=== PATIENT | male | born 1940 | race Caucasian/White ===

== ENCOUNTER 2017-07-13 09:32 | Inpatient (IN) | payer MEDICARE, BC ==
[~2017-07-13] VITALS: Ht 167.6 cm; Wt 87.6 kg
[2017-07-13] MEDS ORDERED: SOD CHLORIDE 0.9% 1,000 ML IV STA (09:39)
[2017-07-13] MEDS ORDERED: ACETAMINOPHEN 325 MG TAB PO ONE (10:00)
[2017-07-13] MEDS ORDERED: CEFTRIAXONE 1 GM/50 ML (PMX) 50 ML IVPB ONE (10:00)
[2017-07-13 11:39] LABS: BASOPHILS % 0.3 % (0.0-2.0); EOSINOPHILS % 0.1 % (0.0-7.0); HEMATOCRIT 33.7 % (42.0-52.0); HEMOGLOBIN 10.6 g/dl (14.0-18.0); LYMPHOCYTES # 0.9 10^3/ul (0.8-2.9); LYMPHOCYTES % 5.7 % (15.0-51.0); MEAN CORPUSCULAR HEMOGLOBIN 26.6 pg (29.0-33.0); MEAN CORPUSCULAR HGB CONC 31.5 g/dl (32.0-37.0); MEAN CORPUSCULAR VOLUME 84.5 fl (82.0-101.0); MEAN PLATELET VOLUME 11.1 fl (7.4-10.4); MONOCYTE # 1.5 10^3/ul (0.3-0.9); MONOCYTES % 9.4 % (0.0-11.0); NEUTROPHIL # 13.3 10^3/ul (1.6-7.5); NEUTROPHILS % 83.9 % (39.0-77.0); PLATELET COUNT 214 10^3/UL (140-415); RED BLOOD COUNT 3.99 10^6/ul (4.70-6.10); RED CELL DISTRIBUTION WIDTH 15.4 % (11.5-14.5); WHITE BLOOD COUNT 15.8 10^3/ul (4.8-10.8)
[2017-07-13 11:42] LABS: ADD UMIC NO; UR ASCORBIC ACID NEGATIVE (NEGATIVE); UR BILIRUBIN (Dip) NEGATIVE (NEGATIVE); UR BLOOD (Dip) NEGATIVE (NEGATIVE); UR CLARITY CLEAR (CLEAR); UR COLOR YELLOW (YELLOW); UR GLUCOSE (Dip) 1+ mg/dL (NEGATIVE); UR KETONES (Dip) NEGATIVE (NEGATIVE); UR LEUKOCYTE ESTERASE (Dip) NEGATIVE Leu/ul (NEGATIVE); UR NITRITE (Dip) NEGATIVE (NEGATIVE); UR TOTAL PROTEIN (Dip) NEGATIVE (NEGATIVE); UR UROBILINOGEN (Dip) NEGATIVE (NEGATIVE)
--- NOTE | 2017-07-13 11:44 | ERA ---
ER Documentation Chief Complaint Date/Time DATE: 07/13/17 TIME: 11:42 Chief Complaint GEN WEAKNESS NO TRAUMA. NO HEADACHE. SEEN YESTERDAY IN ER FOR SAME HPI This is a 76-year-old male who presents to the emergency room with generalized weakness. The patient was seen in emergency room yesterday for similar symptoms. He states that he was diagnosed with UTI and discharged. He is not sure what medications were given to him. He states that he is feeling generalized fatigue and generalized weakness. He denies any headache chest pain or shortness of breath, no abdominal pain. He denies any falls or trauma to his head. ROS All systems reviewed and are negative except as per history of present illness. Medications Home Meds Reported Medications Acetaminophen with Codeine (Acetaminophen-Cod #4 Tablet) 1 Each Tablet, 1 EACH PO Q12 Y for PAIN, TAB 07/13/17 Aspirin* (Ecotrin*) 325 Mg Tablet.dr, 325 MG PO DAILY, TAB 07/13/17 Lansoprazole* (Prevacid*) 30 Mg Capsule.dr, 30 MG PO DAILY, CAP 07/13/17 Insulin Glargine* (Lantus*) 100 Unit/Ml Soln, 27 UNIT SC QHS, #1 VIAL 07/13/17 Insulin Lispro (Humalog Kwikpen) 200 Unit/1 Ml Insuln.pen, 0 SQ AC MEALS, EA SLIDING SCALE NO SCALE GIVEN 07/13/17 Furosemide* (Furosemide*) 80 Mg Tablet, 80 MG PO DAILY, #30 TAB 07/13/17 Tamsulosin Hcl* (Tamsulosin Hcl*) 0.4 Mg Cap.er.24h, 0.4 MG PO HS, CAP 07/13/17 Rivaroxaban* (Xarelto*) 20 Mg Tablet, 20 MG PO WITH DINNER, TAB 07/13/17 Ramipril (Ramipril) 10 Mg Capsule, 10 MG PO DAILY, CAP 07/13/17 Potassium Chloride* (K-Dur*) 10 Meq Tab.prt.sr, 10 MEQ PO BID, TAB 07/13/17 Amlodipine Besylate* (Amlodipine Besylate*) 10 Mg Tablet, 10 MG PO DAILY, #30 TAB 07/13/17 Atorvastatin Calcium (Atorvastatin Calcium) 10 Mg Tablet, 10 MG PO QHS, #30 TAB 07/13/17 Mirtazapine* (Mirtazapine*) 30 Mg Tablet, 60 MG PO HS, TAB 07/13/17 Cefpodoxime Proxetil* (Cefpodoxime Proxetil*) 100 Mg Tablet, 100 MG PO Q12, #20 TAB 07/13/17 Gabapentin* (Gabapentin*) 300 Mg Capsule, 300 MG PO TID, #90 CAP 07/13/17 Allergies Allergies: Coded Allergies: No Known Allergy (Unverified , 07/13/17) FmHx Family History: No diabetes Physical Exam Vitals Vital Signs Date Time Temp Pulse Resp B/P Pulse Ox O2 Delivery O2 Flow Rate FiO2 07/13/17 12:00 76 22 151/71 95 Nasal Cannula 3.0 07/13/17 11:40 Nasal Cannula 3 07/13/17 10:00 87 18 145/63 99 Room Air 07/13/17 09:48 100.2 92 20 142/85 95 Physical Exam General: Well developed, well nourished, no acute distress Head: Normocephalic, atraumatic. Eyes: Pupils equally reactive, EOM intact ENT: Moist mucous membranes Neck: Supple, no lymphadenopathy Respiratory: Lungs clear bilaterally, no distress Cardiovascular: RRR, no murmurs, rubs, or gallops Abdominal: Soft, non-tender, non-distended, no peritoneal signs : Deferred MSK: No edema, no unilateral swelling, 5/5 strength Neurologic: Alert and oriented, moving all extremities, normal speech, no focal weakness, no cerebellar signs Skin: A small skin tear is noted to the right arm that is hemostatic and subacute Psych: Normal mood Result Diagram: 07/13/17 1107 07/13/17 1107 Results 24 hrs Laboratory Tests Test 07/13/17 11:07 07/13/17 11:17 White Blood Count 15.810^3/ul Red Blood Count 3.9910^6/ul Hemoglobin 10.6g/dl Hematocrit 33.7% Mean Corpuscular Volume 84.5fl Mean Corpuscular Hemoglobin 26.6pg Mean Corpuscular Hemoglobin Concent 31.5g/dl Red Cell Distribution Width 15.4% Platelet Count 86385^3/UL Mean Platelet Volume 11.1fl Neutrophils % 83.9% Lymphocytes % 5.7% Monocytes % 9.4% Eosinophils % 0.1% Basophils % 0.3% Nucleated Red Blood Cells % 0.0/100WBC Neutrophils # 13.310^3/ul Lymphocytes # 0.910^3/ul Monocytes # 1.510^3/ul Eosinophils # 0.010^3/ul Basophils # 0.010^3/ul Nucleated Red Blood Cells # 0.010^3/ul Prothrombin Time 42.7Sec Prothrombin Time Ratio 3.3 INR International Normalized Ratio 4.39 Activated Partial Thromboplast Time 56.5Sec Sodium Level 131mmol/L Potassium Level 4.9mmol/L Chloride Level 99mmol/L Carbon Dioxide Level 26mmol/L Anion Gap 11 Blood Urea Nitrogen 17mg/dl Creatinine 1.22mg/dl Glucose Level 268mg/dl Lactic Acid Level 1.3mmol/L Calcium Level 8.5mg/dl Total Bilirubin 0.2mg/dl Direct Bilirubin 0.00mg/dl Indirect Bilirubin 0.2mg/dl Aspartate Amino Transf (AST/SGOT) 27IU/L Alanine Aminotransferase (ALT/SGPT) 36IU/L Alkaline Phosphatase 139IU/L Troponin I 0.015ng/ml Total Protein 5.9g/dl Albumin 3.1g/dl Globulin 2.80g/dl Albumin/Globulin Ratio 1.10 Urine Color YELLOW Urine Clarity CLEAR Urine pH 5.0 Urine Specific [place] 1.010 Urine Ketones NEGATIVEmg/dL Urine Nitrite NEGATIVEmg/dL Urine Bilirubin NEGATIVEmg/dL Urine Urobilinogen NEGATIVEmg/dL Urine Leukocyte Esterase NEGATIVELeu/ul Urine Hemoglobin NEGATIVEmg/dL Urine Glucose 1+mg/dL Urine Total Protein NEGATIVEmg/dl Current Medications Medications (Trade) Dose Ordered Sig/Piedad Route PRN Reason Start Time Stop Time Status Last Admin Dose Admin Sodium Chloride (NS) 1,000 ml @ 1,000 mls/hr Q1H STAT IV 07/13/17 09:39 07/13/17 10:38 DC 07/13/17 11:23 Acetaminophen 650 mg 650 mg ONCE ONCE PO 07/13/17 10:00 07/13/17 10:01 DC 07/13/17 11:26 Ceftriaxone Sodium (Rocephin) 50 ml @ 100 mls/hr ONCE ONCE IVPB 07/13/17 10:00 07/13/17 10:29 DC 07/13/17 11:26 Ondansetron HCl (Zofran Inj) 4 mg BRIDGE ORDER PRN IV NAUSEA AND/OR VOMITING 07/13/17 13:30 07/14/17 13:29 Acetaminophen (Tylenol Tab) 650 mg ER BRIDGE PRN PO MILD PAIN/FEVER 07/13/17 13:30 07/14/17 13:29 Procedures/MDM EKG, MONITORS, & DIAGNOSTIC IMAGING: EKG: I reviewed and interpreted a 12-lead EKG. Rhythm: Normal sinus rhythm Ectopy: None Intervals: No abnormalities ST segments: No elevations or depressions T waves: No contiguous inversions Chest x-ray: I reviewed and interpreted a 1 view of the chest Mediastinum: No enlargement Cardiac silhouette: No cardiomegaly Airspace: Clear lung duarte bilaterally without evidence of pneumothorax Bones: No evidence of fracture LAB INTERPRETATION: Slightly supratherapeutic INR, leukocytosis, Hyponatremia MEDICAL DECISION MAKING: The patient is a low-grade fever and recent diagnosis of UTI. He describes generalized weakness. His constellation of symptoms are likely secondary to UTI. The patient will require sepsis screening, antipyretics. The patient is unsure what antibiotics were given. A dose of ceftriaxone will be provided in the emergency department. Hospitalization appropriate given 2 ER visits within 48 hours. ER COURSE: The patient does have a low-grade fever and leukocytosis. This is most likely an infectious process. The patient's urine is unrevealing though the patient did receive antibiotics recently. For this reason the patient will be treated for urinary tract infection was given ceftriaxone. He does not meet sepsis criteria and has no evidence of endorgan dysfunction. Continue to monitor the patient. He is resting comfortably and remains at neurologic baseline. Again, no evidence of head trauma to from CT imaging at this time. The patient will be admitted for further management of generalized weakness per I kept the patient and/or family informed of laboratory and diagnostic imaging results throughout the emergency room course. DISPOSITION PLAN: Medical surgical admission for management of UTI and generalized weakness CONSULTATION: Accepting care team and consultations: I discussed the current laboratory data, diagnostic imaging and emergency care provided. Admitting team: Dr. White Admitting team indication: Insurance directed Departure Diagnosis: Primary Impression: Acute weakness Additional Impressions: Urinary tract infection Qualified Code: N30.00 - Acute cystitis without hematuria Supratherapeutic INR Hyponatremia Condition: Stable MARIANNE XIE MD Jul 13, 2017 11:44
[2017-07-13 11:53] LABS: ALBUMIN 3.1 g/dl (3.3-4.9); ALBUMIN/GLOBULIN RATIO 1.1; BILIRUBIN,INDIRECT 0.2 mg/dl (0-1.1); BILIRUBIN,TOTAL 0.2 mg/dl (0.2-1.3); CALCIUM 8.5 mg/dl (8.4-10.2); CREATININE 1.22 mg/dl (0.61-1.24); POTASSIUM 4.9 mmol/L (3.5-5.1); TOTAL PROTEIN 5.9 g/dl (6.1-8.1)
[2017-07-13 12:04] LABS: TROPONIN-I 0.015 ng/ml (0.00-0.12)
--- NOTE | 2017-07-13 12:11 | RADRPT ---
PROCEDURE: XR Chest. CLINICAL INDICATION: Shortness of breath. TECHNIQUE: Single frontal view. COMPARISON: None. FINDINGS: There is mild linear atelectasis at the lung bases. The lungs are otherwise clear. The heart size is normal. There is calcification in the aorta consistent with atherosclerosis. There are sternal wires and mediastinal clips. There is a left-sided permanent pacemaker. There is no pleural effusion. There is no pneumothorax. IMPRESSION: 1. Mild atelectasis at the lung bases. 2. Atherosclerosis. 3. Previous median sternotomy. 4. Permanent pacemaker. RPTAT: QQ .Bakari Wagner MD, MD Date Time Electronically viewed and signed by .Bakari Wagner MD, on 07/13/2017 12:11 .R/
[2017-07-13 12:14] LABS: INR 4.39; PROTIME 42.7 Sec (12.2-14.2); PT RATIO 3.3
[2017-07-13 12:15] LABS: PARTIAL THROMBOPLASTIN TIME 56.5 Sec (25.0-35.0)
[2017-07-13] MEDS ORDERED: GABA300C16 PO (12:24)
[2017-07-13] MEDS ORDERED: MIRT30TA5 PO (12:25)
[2017-07-13] MEDS ORDERED: ATOR10TA65 PO (12:25)
[2017-07-13] MEDS ORDERED: CEFP100T7 PO (12:25)
[2017-07-13] MEDS ORDERED: AMLO-147 PO (12:29)
[2017-07-13] MEDS ORDERED: POTA10TA37 PO (12:31)
[2017-07-13] MEDS ORDERED: TAMS0.4C2 PO (12:34)
[2017-07-13] MEDS ORDERED: RIVA20TA PO (12:34)
[2017-07-13] MEDS ORDERED: RAMI10CA48 PO (12:34)
[2017-07-13] MEDS ORDERED: FURO80TA3 PO (12:35)
[2017-07-13] MEDS ORDERED: LANS30CA47 PO (12:36)
[2017-07-13] MEDS ORDERED: LANT3I SC (12:36)
[2017-07-13] MEDS ORDERED: INSU200I SQ (12:36)
[2017-07-13] MEDS ORDERED: ASPI-781 PO (12:37)
[2017-07-13] MEDS ORDERED: ACET1TAB44 PO (12:43)
[2017-07-13] MEDS ORDERED: ONDANSETRON 4 MG INJ IV PRN ×2 (13:30→14:30)
[2017-07-13] MEDS ORDERED: ACETAMINOPHEN 325 MG TAB PO PRN ×2 (13:30→14:30)
[2017-07-13] MEDS ORDERED: SOD CHLORIDE 0.45% 1,000 ML IV SCH (14:18)
[2017-07-13] MEDS ORDERED: DEXTROSE 50% 50 ML SYRINGE IV PRN ×2 (14:30)
[2017-07-13] MEDS ORDERED: GLUCOSE GEL 15 GRAM TUBE BUCCAL PRN (14:30)
[2017-07-13] MEDS ORDERED: DOCUSATE SODIUM 100 MG CAP PO PRN (14:30)
[2017-07-13] MEDS ORDERED: ALBUTEROL/IPRATROPIUM (NEB) 3 ML AMP HHN PRN (14:30)
[2017-07-13] MEDS ORDERED: NA PHOSPHATE/BIPHOS 133 ML ENEMA PR PRN (14:30)
[2017-07-13] MEDS ORDERED: LORAZEPAM 2 MG INJ IV PRN (14:30)
[2017-07-13] MEDS ORDERED: GLUCAGON 1 MG INJ IM PRN (14:30)
[2017-07-13] MEDS ORDERED: GLUCOSE GEL 15 GRAM TUBE PO PRN ×2 (14:30)
[2017-07-13] MEDS ORDERED: NACL 0.9% 3 ML SYG IV SCH (14:30)
[2017-07-13] MEDS ORDERED: NITROGLYCERIN (SL) 0.4 MG TAB SL PRN (14:30)
[2017-07-13 15:30] VITALS: Ht 167.6 cm; Wt 87.6 kg
[2017-07-13 15:33] VITALS: BP 162/72; RESP 18
--- NOTE | 2017-07-13 16:53 | HP ---
DATE OF ADMISSION: 07/13/2017 CHIEF COMPLAINT: Generalized weakness. HISTORY OF PRESENT ILLNESS: This is 76-year-old male with a past medical history of type 2 diabetes, essential hypertension, recent urinary tract infection, heart arrhythmia, who presents with weakness he says has been going on for the last 2 days. Patient was recently treated for a UTI a little over a week ago and took some antibiotics at home, but denies any dysuria. No fevers or chills. No nausea or vomiting. No upper or lower GI bleeding. No chest pain. No shortness of breath. No headaches or dizziness. But he is having complaints of generalized weakness. He does not remember which antibiotic he was taking for his urinary tract infection. He says his primary care doctors are Dr. Bean at [facility], and also he sees a Dr. Serrano, a sales office assistant at [facility]. He has been on Xarelto for about the last year for a heart arrhythmia, but he does not remember what kind of heart arrhythmia he has. When he came into the ER today, he had a fever, temperature of 100.2, and his white blood cell count was elevated at 15.8. His UA was actually without signs of possible UTI, inconclusive. PAST MEDICAL HISTORY: As above. ALLERGIES: NO KNOWN DRUG ALLERGIES. MEDICATIONS: Home medications include: 1. Cefpodoxime 100 mg p.o. q.12 hours. 2. Flomax 0.4 mg q.h.s.. 3. Xarelto 20 mg q.h.s. 4. Amlodipine 10 mg daily. 5. Atorvastatin 10 mg q.h.s. 6. Ramipril 10 mg daily. 7. [place] q.12 hours p.r.n 8. Aspirin 325 mg daily. 9. Gabapentin 300 mg t.i.d. 10. Mirtazapine 60 mg q.h.s. 11. Lasix 80 mg daily. 12. K-Dur 10 mEq b.i.d. 13. Prevacid 30 mg daily. 14. Lantus 27 units q.h.s. 15. Humalog with meals. PAST SURGICAL HISTORY: He has had tonsil surgery in the past. SOCIAL HISTORY: Former smoker. Quit many years ago and denies any IV drug abuse. Denies any alcohol abuse. FAMILY HISTORY: Noncontributory. PHYSICAL EXAMINATION: VITAL SIGNS: T-max 100.2, pulse 76 and 92, respirations 18 and 22, blood pressure is 151/71, satting at 95 percent 3 L nasal cannula. GENERAL: Patient is sitting in bed, answers question appropriately. In mild distress. HEENT: Pupils equal, round, reactive to light. Extraocular muscles intact. NECK: Supple. No thyromegaly. LUNGS: Clear to auscultation bilaterally. CARDIOVASCULAR: S1, S2 heard. No rubs, gallops. ABDOMEN: Soft, nontender, nondistended. Normal bowel sounds. No rebound or guarding. MUSCULOSKELETAL: No lower extremity edema bilaterally. NEUROLOGIC: No focal deficits. SKIN: Small tear noted in the right arm that is hemostatic, subacute. LABORATORY AND IMAGING STUDIES: WBC 15.8, hemoglobin 10.6, hematocrit 33.7, platelets 214. Sodium 131, potassium 4.9, chloride 99, CO2 of 26, BUN 17, creatinine 1.22, glucose 268. He had a chest x-ray performed that shows mild atelectasis at the lung bases, atherosclerosis, previous median sternotomy, permanent pacemaker. ASSESSMENT AND PLAN: A 76-year-old male, presents with generalized weakness, with signs of fever and leukocytosis, likely secondary to urinary tract infection. 1. Sepsis. He has fever and elevated white blood cell count. Vital signs are relatively stable. Will admit the patient. Again, likely secondary to urinary tract infection, although urinalysis did not show overt signs of a urinary tract infection, but he was recently treated for a urinary tract infection as an outpatient. So admit the patient to telemetry floor. Put him on Rocephin antibiotics. Tylenol p.r.n. pain and fevers. Follow up final culture results. Put him on broad-spectrum antibiotics, as mentioned. Check TSH, A1c and lipid panel as well. Get PT and OT consults as well. 2. History of type 2 diabetes. Put him back on his Lantus insulin, put him on sliding scale insulin as well. Will check an A1c. 3. Essential hypertension. Blood pressure is actually stable. Continue home blood pressure medicines for now. 4. Elevated INR. INR today was found to be 4.39. He does take Xarelto at home. We will hold obviously the Xarelto and trend his INR for now. Since he is not having any overt bleeding signs, we are not going to give him any vitamin K at this time. Coronary artery disease. Chest x-ray did show signs of a median sternotomy. Patient does not remember his cardiac issues. Presumably, he had a bypass surgery with a pacemaker placement in the past, and he has had some kind of arrhythmia in the past. He sees a sales office assistant at [facility], 5. Dr. Serrano. So, for now, continue him on telemetry monitoring. Get a 2D echocardiogram as well. Consider holding his Lasix medication, since he is having signs of sepsis and would benefit more from IV fluids at this point. Dictated By: Cullen Hernandez MD /[email or web address]/fozia /Document#: [id number]
[2017-07-13] MEDS: PIPER-TAZO 3.375 GM IV (PMX) 100 ML IVPB SCH (17:37)
[2017-07-13] MEDS: INSULIN ASPART [NOVOLOG] 3 ML PEN SC SCH ×2 (18:26→21:00)
[2017-07-13 19:37] VITALS: BP 153/72; RESP 20
[2017-07-13] MEDS: POTASSIUM CHLORIDE (SR) 10 MEQ TAB PO SCH (21:00)
[2017-07-13] MEDS: GABAPENTIN 300 MG CAP PO SCH (21:00)
[2017-07-13] MEDS: ATORVASTATIN 10 MG TAB PO SCH (21:00)
[2017-07-13] MEDS: TAMSULOSIN (SR) 0.4 MG CAP PO SCH (21:00)
[2017-07-13] MEDS: CEFPODOXIME 200 MG TAB PO SCH (21:00)
[2017-07-13] MEDS: MIRTAZAPINE 15 MG TAB PO SCH (21:01)
[2017-07-13] MEDS: INSULIN GLARGINE [LANtus] 3 ML PEN SC SCH (21:13)
[2017-07-13] MEDS: ACCU-CHEK XX SCH (21:15)
[2017-07-13] MEDS: SOD CHLORIDE 0.9% 1,000 ML IV SCH (22:46)
[2017-07-14] MEDS: PIPER-TAZO 3.375 GM IV (PMX) 100 ML IVPB SCH ×3 (01:15→12:04)
[2017-07-14] MEDS: ACCU-CHEK XX SCH (01:15)
[2017-07-14 01:44] VITALS: BP 144/65; RESP 20
[2017-07-14] MEDS: MAGNESIUM HYDROXIDE 30ML CUP PO PRN (04:48)
[2017-07-14] MEDS: HYDROCODONE/APAP (5/325) TAB PO PRN (04:48)
[2017-07-14] MEDS: PANTOPRAZOLE (EC) 40 MG TAB PO SCH (05:32)
[2017-07-14 06:20] LABS: BASOPHILS % 0.2 % (0.0-2.0); EOSINOPHILS # 0.2 10^3/ul (0.0-0.5); EOSINOPHILS % 1.8 % (0.0-7.0); HEMATOCRIT 33.5 % (42.0-52.0); HEMOGLOBIN 10.9 g/dl (14.0-18.0); LYMPHOCYTES # 0.6 10^3/ul (0.8-2.9); LYMPHOCYTES % 6.5 % (15.0-51.0); MEAN CORPUSCULAR HGB CONC 32.5 g/dl (32.0-37.0); MEAN CORPUSCULAR VOLUME 83.1 fl (82.0-101.0); MEAN PLATELET VOLUME 10.2 fl (7.4-10.4); MONOCYTE # 0.8 10^3/ul (0.3-0.9); MONOCYTES % 7.9 % (0.0-11.0); NEUTROPHIL # 7.9 10^3/ul (1.6-7.5); NEUTROPHILS % 83.1 % (39.0-77.0); PLATELET COUNT 211 10^3/UL (140-415); RED BLOOD COUNT 4.03 10^6/ul (4.70-6.10); RED CELL DISTRIBUTION WIDTH 14.8 % (11.5-14.5); WHITE BLOOD COUNT 9.5 10^3/ul (4.8-10.8)
[2017-07-14 06:28] LABS: INR 1.72; PROTIME 20.3 Sec (12.2-14.2); PT RATIO 1.6
[2017-07-14 06:48] LABS: CALCIUM 8.4 mg/dl (8.4-10.2); CREATININE 1.05 mg/dl (0.61-1.24); MAGNESIUM 2.1 mg/dl (1.7-2.5); PHOSPHORUS 3.6 mg/dl (2.5-4.9)
[2017-07-14 07:02] LABS: THYROID STIMULATING HORMONE 1.85 MIU/L (0.465-4.680)
[2017-07-14 07:25] VITALS: BP 154/71; RESP 20
[2017-07-14] MEDS: AMLODIPINE 10 MG TAB PO SCH (08:05)
[2017-07-14] MEDS: CEFPODOXIME 200 MG TAB PO SCH (08:05)
[2017-07-14] MEDS: GABAPENTIN 300 MG CAP PO SCH ×3 (08:06→21:24)
[2017-07-14] MEDS: POTASSIUM CHLORIDE (SR) 10 MEQ TAB PO SCH ×2 (08:06→21:24)
[2017-07-14] MEDS: INSULIN ASPART [NOVOLOG] 3 ML PEN SC SCH ×4 (08:09→21:28)
[2017-07-14] MEDS ORDERED: FUROSEMIDE 40 MG TAB PO SCH (09:00)
[2017-07-14] MEDS: morphine 2 MG INJ IV PRN (09:35)
--- NOTE | 2017-07-14 10:17 | PN ---
Date/Time of Note Date/Time of Note DATE: 07/14/17 TIME: 10:08 Assessment/Plan VTE Prophylaxis VTE Prophylaxis Intervention: other Lines/Catheters IV Catheter Type (from Nrs): Peripheral IV Urinary Cath still in place: No (condom cath applied) Assessment/Plan Chief Complaint/Hosp Course ASSESSMENT AND PLAN: A 76-year-old male, presents with generalized weakness, with signs of fever and leukocytosis, likely secondary to urinary tract infection. 1. Sepsis. Likely secondary to urinary tract infection, continue Rocephin, Follow-up urine culture and sensitivity Leukocytosis has resolved, continue Tylenol as needed 2. History of type 2 diabetes. Continue Lantus and sliding scale insulin Placed the patient on low-carb diet 3. Essential hypertension. Controlled on medical management, continue home meds 4. Supra therapeutic INR. INR 4.39 at time of admission. Indication for vitamin K at this time there is no active bleeding. Continue to monitor INR 5. Coronary artery disease. With history of bypass surgery with a pacemaker placement Patient is asymptomatic without any chest pain Continue Xarelto, statin, and monitor blood pressure 6. Dyslipidemia. Continue statin 7. BPH. Continue home meds 8. Diabetic neuropathy. Continue gabapentin and close monitoring of diabetic mellitus treatment Plan: Follow urine culture and sensitivity Follow up physical therapy recommendations Disposition: Discharged home versus residential facility for physical therapy tomorrow Problems: Subjective 24 Hr Interval Summary Free Text/Dictation Patient states that he is feeling better Denies of any chest pain or shortness of breath Afebrile this morning Waiting for PT OT eval Exam/Review of Systems Vital Signs Vitals Vital Signs Date Time Temp Pulse Resp B/P Pulse Ox O2 Delivery O2 Flow Rate FiO2 07/14/17 07:25 99.0 66 20 154/71 96 07/13/17 15:38 Nasal Cannula 2.0 Intake and Output 07/13/17 07/13/17 07/14/17 15:00 23:00 07:00 Intake Total 450 ml 1450 ml Output Total 0 ml 1000 ml Balance 450 ml 450 ml Exam General: The patient is well-developed, Not in acute distress. HEENT: Atraumatic, normocephalic. The pupils are equal and round . Neck: Supple with full range of motion. Chest: Normal expansion of the thorax during inspiration Lungs: Clear to auscultation bilaterally Heart: Normal S1-S2, Regular rhythm and rate. Abdomen: Soft , nontender, nondistended , bowel sounds are present. Extremities: Normal to inspection, no edema no cyanosis Neurologic: Normal mental status,The patient is awake, alert and oriented . Results Result Diagram: 07/14/17 0550 07/14/17 0549 Results 24 hrs Laboratory Tests Test 07/13/17 11:07 07/13/17 11:17 07/13/17 13:40 07/13/17 16:02 White Blood Count 15.8 H Red Blood Count 3.99 L Hemoglobin 10.6 L Hematocrit 33.7 L Mean Corpuscular Volume 84.5 Mean Corpuscular Hemoglobin 26.6 L Mean Corpuscular Hemoglobin Concent 31.5 L Red Cell Distribution Width 15.4 H Platelet Count 214 Mean Platelet Volume 11.1 H Neutrophils % 83.9 H Lymphocytes % 5.7 L Monocytes % 9.4 Eosinophils % 0.1 Basophils % 0.3 Nucleated Red Blood Cells % 0.0 Neutrophils # 13.3 H Lymphocytes # 0.9 Monocytes # 1.5 H Eosinophils # 0.0 Basophils # 0.0 Nucleated Red Blood Cells # 0.0 Prothrombin Time 42.7 H Prothrombin Time Ratio 3.3 INR International Normalized Ratio 4.39 Activated Partial Thromboplast Time 56.5 H Sodium Level 131 L Potassium Level 4.9 Chloride Level 99 Carbon Dioxide Level 26 Anion Gap 11 Blood Urea Nitrogen 17 Creatinine 1.22 Glucose Level 268 H Lactic Acid Level 1.3 0.9 0.7 Calcium Level 8.5 Total Bilirubin 0.2 Direct Bilirubin 0.00 Indirect Bilirubin 0.2 Aspartate Amino Transf (AST/SGOT) 27 Alanine Aminotransferase (ALT/SGPT) 36 Alkaline Phosphatase 139 H Troponin I 0.015 Total Protein 5.9 L Albumin 3.1 L Globulin 2.80 Albumin/Globulin Ratio 1.10 Free Thyroxine 1.17 Urine Color YELLOW Urine Clarity CLEAR Urine pH 5.0 Urine Specific [place] 1.010 Urine Ketones NEGATIVE Urine Nitrite NEGATIVE Urine Bilirubin NEGATIVE Urine Urobilinogen NEGATIVE Urine Leukocyte Esterase NEGATIVE Urine Hemoglobin NEGATIVE Urine Glucose 1+ H Urine Total Protein NEGATIVE Test 07/13/17 17:36 07/13/17 18:20 07/13/17 21:03 07/14/17 05:48 Bedside Glucose 153 148 147 Prothrombin Time 20.3 #H Prothrombin Time Ratio 1.6 INR International Normalized Ratio 1.72 Test 07/14/17 05:49 07/14/17 05:50 07/14/17 08:03 Sodium Level 136 Potassium Level 4.0 Chloride Level 104 Carbon Dioxide Level 29 Anion Gap 7 L Blood Urea Nitrogen 16 Creatinine 1.05 Glucose Level 186 Hemoglobin A1c 7.4 H Calcium Level 8.4 Phosphorus Level 3.6 Magnesium Level 2.1 Triglycerides Level 46 Cholesterol Level 62 L LDL Cholesterol, Calculated 22 HDL Cholesterol 31 Cholesterol/HDL Ratio 2.0 Thyroid Stimulating Hormone (TSH) 1.850 White Blood Count 9.5 # Red Blood Count 4.03 L Hemoglobin 10.9 L Hematocrit 33.5 L Mean Corpuscular Volume 83.1 Mean Corpuscular Hemoglobin 27.0 L Mean Corpuscular Hemoglobin Concent 32.5 Red Cell Distribution Width 14.8 H Platelet Count 211 Mean Platelet Volume 10.2 Neutrophils % 83.1 H Lymphocytes % 6.5 L Monocytes % 7.9 Eosinophils % 1.8 Basophils % 0.2 Nucleated Red Blood Cells % 0.0 Neutrophils # 7.9 H Lymphocytes # 0.6 L Monocytes # 0.8 Eosinophils # 0.2 Basophils # 0.0 Nucleated Red Blood Cells # 0.0 Bedside Glucose 168 Medications Medications Current Medications Ondansetron HCl (Zofran Inj) 4 mg Q6H PRN IV NAUSEA AND/OR VOMITING; Start at 14:30 Acetaminophen (Tylenol Tab) 650 mg Q6H PRN PO PAIN LEVEL 1-3 OR FEVER; Start at 14:30 Acetaminophen/ Hydrocodone Bitart ([place] (5/325)) 1 tab Q6H PRN PO MODERATE PAIN LEVEL 4-6 Last administered on 07/14/17 04:48; Admin Dose 1 TAB; Start at 14:30 Morphine Sulfate (morphine) 2 mg Q4H PRN IV SEVERE PAIN LEVEL 7-10 Last administered on 07/14/17 09:35; Admin Dose 2 MG; Start 07/13/17 at 14:30 Docusate Sodium (Colace) 100 mg Q12H PRN PO CONSTIPATION; Start 07/13/17 at 14: 30 Magnesium Hydroxide (Milk Of Mag) 30 ml DAILY PRN PO CONSTIPATION Last administered on 07/14/17 04:48; Admin Dose 30 ML; Start 07/13/17 at 14:30 Sodium Biphosphate/ Sodium Phosphate (Fleet Enema) 133 ml DAILY PRN MD CONSTIPATION; Start 07/13/17 at 14:30 Lorazepam 0.5 mg 0.5 mg Q6H PRN IV ANXIETY; Start 07/13/17 at 14:30 Piperacillin Sod/ Tazobactam Sod (Zosyn 3.375gm/ 100 ml (Pmx)) 100 ml @ 200 mls /hr Q6 IVPB Last administered on 07/14/17 05:31; Admin Dose 200 MLS/HR; Start 07/13/17 at 18:00 Hydralazine HCl (Apresoline) 10 mg Q6H PRN IV ELEVATED BLOOD PRESSURE; Start at 14:30 Nitroglycerin (Nitroglycerin (Sl Tab) 0.4 Mg) 1 tab Q5M PRN SL ANGINA; Start at 14:30 Diagnostic Test (Pha) (Accu-Chek) 1 ea 02 XX ; Start 07/14/17 at 02:00 Amlodipine Besylate (Norvasc) 10 mg DAILY PO Last administered on 07/14/17 08: 05; Admin Dose 10 MG; Start 07/14/17 at 09:00 Atorvastatin Calcium (Lipitor) 10 mg QHS PO Last administered on 07/13/17 21: 00; Admin Dose 10 MG; Start 07/13/17 at 21:00 Cefpodoxime Proxetil (Vantin) 100 mg Q12 PO Last administered on 07/14/17 08: 05; Admin Dose 100 MG; Start 07/13/17 at 21:00 Furosemide (Lasix) 80 mg DAILY PO Last administered on 07/14/17 08:06; Admin Dose 80 MG; Start 07/14/17 at 09:00; Status Future Hold Gabapentin (Neurontin) 300 mg TID PO Last administered on 07/14/17 08:06; Admin Dose 300 MG; Start 07/13/17 at 21:00 Insulin Glargine (Lantus) 27 unit QHS SC Last administered on 07/13/17 21:13; Admin Dose 27 UNIT; Start 07/13/17 at 21:00 Pantoprazole (Protonix Tab) 40 mg DAILY@06 PO Last administered on 07/14/17 05 :32; Admin Dose 40 MG; Start 07/14/17 at 06:00 Mirtazapine (Remeron) 60 mg HS PO Last administered on 07/13/17 21:01; Admin Dose 60 MG; Start 07/13/17 at 21:00 Potassium Chloride (Klor-Con 10) 10 meq BID PO Last administered on 07/14/17 08:06; Admin Dose 10 MEQ; Start 07/13/17 at 21:00 Tamsulosin HCl (Flomax) 0.4 mg HS PO Last administered on 07/13/17 21:00; Admin Dose 0.4 MG; Start 07/13/17 at 21:00 Miscellaneous Information 1 ea NOTE XX ; Start 07/13/17 at 14:30 Glucose (Glutose) 15 gm Q15M PRN PO DECREASED GLUCOSE; Start 07/13/17 at 14:30 Glucose (Glutose) 22.5 gm Q15M PRN PO DECREASED GLUCOSE; Start 07/13/17 at 14: 30 Dextrose (D50w Syringe) 25 ml Q15M PRN IV DECREASED GLUCOSE; Start 07/13/17 at 14:30 Dextrose (D50w Syringe) 50 ml Q15M PRN IV DECREASED GLUCOSE; Start 07/13/17 at 14:30 Glucagon (Glucagen) 1 mg Q15M PRN IM DECREASED GLUCOSE; Start 07/13/17 at 14:30 Glucose (Glutose) 15 gm Q15M PRN BUCCAL DECREASED GLUCOSE; Start 07/13/17 at 14 :30 Diagnostic Test (Pha) 1 ea 1 ea 02 XX ; Start 07/14/17 at 02:00 Sodium Chloride (NS) 1,000 ml @ 75 mls/hr [id number] IV Last administered on 07/13 22:46; Admin Dose 75 MLS/HR; Start 07/13/17 at 22:30; Stop 07/14/17 at 12: 00 NOEL MELLO MD Jul 14, 2017 10:17
[2017-07-14] MEDS: SOD CHLORIDE 0.9% 1,000 ML IV SCH (11:50)
[2017-07-14 14:00] VITALS: BP 156/70; RESP 18
[2017-07-14] MEDS: CEFTRIAXONE 1 GM/NS 50 ML IVPB SCH (17:06)
[2017-07-14 20:00] VITALS: BP 169/74; PULSE 80; RESP 20
[2017-07-14] MEDS: ATORVASTATIN 10 MG TAB PO SCH (21:23)
[2017-07-14] MEDS: MIRTAZAPINE 15 MG TAB PO SCH (21:24)
[2017-07-14] MEDS: INSULIN GLARGINE [LANtus] 3 ML PEN SC SCH (21:27)
[2017-07-14] MEDS: TAMSULOSIN (SR) 0.4 MG CAP PO SCH (21:36)
[2017-07-15 01:50] VITALS: BP 164/73; RESP 20
[2017-07-15] MEDS: ACCU-CHEK XX SCH ×2 (02:00)
[2017-07-15] MEDS ORDERED: INSULIN ASPART [NOVOLOG] 3 ML PEN SC ONE (02:30)
[2017-07-15] MEDS: PANTOPRAZOLE (EC) 40 MG TAB PO SCH (06:02)
[2017-07-15 07:29] VITALS: BP 189/84; RESP 20
[2017-07-15] MEDS: morphine 2 MG INJ IV PRN (07:35)
[2017-07-15] MEDS: INSULIN ASPART [NOVOLOG] 3 ML PEN SC SCH ×4 (07:53→21:01)
[2017-07-15] MEDS: AMLODIPINE 10 MG TAB PO SCH (07:54)
[2017-07-15] MEDS: GABAPENTIN 300 MG CAP PO SCH ×3 (07:54→20:53)
[2017-07-15] MEDS: POTASSIUM CHLORIDE (SR) 10 MEQ TAB PO SCH ×2 (07:54→20:52)
[2017-07-15 08:24] LABS: BASOPHILS % 0.4 % (0.0-2.0); EOSINOPHILS # 0.3 10^3/ul (0.0-0.5); EOSINOPHILS % 3.5 % (0.0-7.0); HEMOGLOBIN 10.8 g/dl (14.0-18.0); LYMPHOCYTES % 13.2 % (15.0-51.0); MEAN CORPUSCULAR HEMOGLOBIN 27.3 pg (29.0-33.0); MEAN CORPUSCULAR HGB CONC 32.7 g/dl (32.0-37.0); MEAN CORPUSCULAR VOLUME 83.5 fl (82.0-101.0); MEAN PLATELET VOLUME 10.2 fl (7.4-10.4); MONOCYTE # 0.7 10^3/ul (0.3-0.9); MONOCYTES % 9.2 % (0.0-11.0); NEUTROPHIL # 5.3 10^3/ul (1.6-7.5); NEUTROPHILS % 73.1 % (39.0-77.0); PLATELET COUNT 232 10^3/UL (140-415); RED BLOOD COUNT 3.95 10^6/ul (4.70-6.10); RED CELL DISTRIBUTION WIDTH 14.6 % (11.5-14.5); WHITE BLOOD COUNT 7.2 10^3/ul (4.8-10.8)
[2017-07-15 09:00] LABS: CALCIUM 8.4 mg/dl (8.4-10.2); CREATININE 1.04 mg/dl (0.61-1.24)
--- NOTE | 2017-07-15 11:10 | PN ---
Date/Time of Note Date/Time of Note DATE: 07/15/17 TIME: 11:04 Assessment/Plan VTE Prophylaxis VTE Prophylaxis Intervention: SCD's Lines/Catheters [facility] Saline Lock Assessment/Plan Chief Complaint/Hosp Course ASSESSMENT AND PLAN: A 76-year-old male, presents with generalized weakness, with signs of fever and leukocytosis, likely secondary to urinary tract infection. 1. Sepsis. Likely secondary to urinary tract infection, continue Rocephin, urine culture and sensitivity negative Leukocytosis has resolved, continue Tylenol as needed 2. History of type 2 diabetes. Continue Lantus and sliding scale insulin Placed the patient on low-carb diet 3. Essential hypertension. Controlled on medical management, continue home meds 4. Supra therapeutic INR. INR 4.39 at time of admission. no Indication for vitamin K at this time there is no active bleeding. Continue to monitor INR 5. Coronary artery disease. With history of bypass surgery with a pacemaker placement Patient is asymptomatic without any chest pain Continue Xarelto, statin, and monitor blood pressure 6. Dyslipidemia. Continue statin 7. BPH. Continue home meds 8. Diabetic neuropathy. 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 He was found to have SIRS upon admission which is likely secondary to urinary tract infection which was treated at the [facility] several days ago and he was discharged from the emergency room. Although his urine culture is found to be negative I strongly believe that this is false negative secondary to the treatment admission community emergency room. Patient admission status has been changed from observation to inpatient secondary to his diagnosis of SIRS/UTI and his debility and weakness Patient will require to be transferred to shelter facility for continuation of IV antibiotics and physical therapy Plan: Follow urine culture and sensitivity Follow up physical therapy recommendations Disposition: Discharged home versus shelter facility for physical therapy tomorrow Problems: Subjective 24 Hr Interval Summary Free Text/Dictation Patient continues to complain of having generalized weakness He was seen and evaluated by the physical therapist and they have recommended the patient should be transferred to shelter facility secondary to his weakness and need of assistance. Patient does live at home with his spouse and at this time his is not able to attend to his needs secondary to his risk of fall This morning patient denies of having any chest pain or shortness of breath Denies of any dysuria Tolerating oral intake Exam/Review of Systems Vital Signs Vitals Vital Signs Date Time Temp Pulse Resp B/P Pulse Ox O2 Delivery O2 Flow Rate FiO2 07/15/17 07:29 98.4 72 20 189/84 95 07/14/17 20:00 Room Air 07/13/17 15:38 2.0 Intake and Output 07/14/17 07/14/17 07/15/17 15:00 23:00 07:00 Intake Total 450 ml 1990 ml 800 ml Output Total 1000 ml 1800 ml Balance 450 ml 990 ml -1000 ml Exam General: The patient is well-developed, Not in acute distress. HEENT: Atraumatic, normocephalic. The pupils are equal and round . Neck: Supple with full range of motion. Chest: Normal expansion of the thorax during inspiration Lungs: Clear to auscultation bilaterally Heart: Normal S1-S2, Regular rhythm and rate. Abdomen: Soft , nontender, nondistended , bowel sounds are present. Genitourinary: Normal external genitalia, Condom cath in place Extremities: Normal to inspection, no edema no cyanosis Neurologic: Normal mental status,The patient is awake, alert and oriented . Results Result Diagram: 07/15/17 0755 07/15/17 0755 Results 24 hrs Laboratory Tests Test 07/14/17 12:04 07/14/17 17:09 07/14/17 18:44 07/14/17 21:21 Bedside Glucose 173 246 H 281 H 298 H Test 07/15/17 02:19 07/15/17 07:53 07/15/17 07:55 Bedside Glucose 347 H 138 White Blood Count 7.2 # Red Blood Count 3.95 L Hemoglobin 10.8 L Hematocrit 33.0 L Mean Corpuscular Volume 83.5 Mean Corpuscular Hemoglobin 27.3 L Mean Corpuscular Hemoglobin Concent 32.7 Red Cell Distribution Width 14.6 H Platelet Count 232 Mean Platelet Volume 10.2 Neutrophils % 73.1 Lymphocytes % 13.2 L Monocytes % 9.2 Eosinophils % 3.5 Basophils % 0.4 Nucleated Red Blood Cells % 0.0 Neutrophils # 5.3 Lymphocytes # 1.0 Monocytes # 0.7 Eosinophils # 0.3 Basophils # 0.0 Nucleated Red Blood Cells # 0.0 Sodium Level 136 Potassium Level 4.0 Chloride Level 102 Carbon Dioxide Level 30 Anion Gap 8 Blood Urea Nitrogen 13 Creatinine 1.04 Glucose Level 123 # Calcium Level 8.4 Medications Medications Current Medications Ondansetron HCl (Zofran Inj) 4 mg Q6H PRN IV NAUSEA AND/OR VOMITING; Start at 14:30 Acetaminophen (Tylenol Tab) 650 mg Q6H PRN PO PAIN LEVEL 1-3 OR FEVER; Start at 14:30 Acetaminophen/ Hydrocodone Bitart ([place] (5/325)) 1 tab Q6H PRN PO MODERATE PAIN LEVEL 4-6 Last administered on 07/14/17 04:48; Admin Dose 1 TAB; Start at 14:30 Morphine Sulfate (morphine) 2 mg Q4H PRN IV SEVERE PAIN LEVEL 7-10 Last administered on 07/15/17 07:35; Admin Dose 2 MG; Start 07/13/17 at 14:30 Docusate Sodium (Colace) 100 mg Q12H PRN PO CONSTIPATION; Start 07/13/17 at 14: 30 Magnesium Hydroxide (Milk Of Mag) 30 ml DAILY PRN PO CONSTIPATION Last administered on 07/14/17 04:48; Admin Dose 30 ML; Start 07/13/17 at 14:30 Sodium Biphosphate/ Sodium Phosphate (Fleet Enema) 133 ml DAILY PRN [place] CONSTIPATION; Start 07/13/17 at 14:30 Lorazepam (Ativan) 0.5 mg Q6H PRN IV ANXIETY; Start 07/13/17 at 14:30 Hydralazine HCl (Apresoline) 10 mg Q6H PRN IV ELEVATED BLOOD PRESSURE; Start at 14:30 Nitroglycerin (Nitroglycerin (Sl Tab) 0.4 Mg) 1 tab Q5M PRN SL ANGINA; Start at 14:30 Diagnostic Test (Pha) (Accu-Chek) 1 ea 02 XX ; Start 07/14/17 at 02:00 Amlodipine Besylate (Norvasc) 10 mg DAILY PO Last administered on 07/15/17 07: 54; Admin Dose 10 MG; Start 07/14/17 at 09:00 Atorvastatin Calcium (Lipitor) 10 mg QHS PO Last administered on 07/14/17 21: 23; Admin Dose 10 MG; Start 07/13/17 at 21:00 Furosemide (Lasix) 80 mg DAILY PO Last administered on 07/14/17 08:06; Admin Dose 80 MG; Start 07/14/17 at 09:00; Status Future Hold Gabapentin (Neurontin) 300 mg TID PO Last administered on 07/15/17 07:54; Admin Dose 300 MG; Start 07/13/17 at 21:00 Insulin Glargine (Lantus) 27 unit QHS SC Last administered on 07/14/17 21:27; Admin Dose 27 UNIT; Start 07/13/17 at 21:00 Pantoprazole (Protonix Tab) 40 mg DAILY@06 PO Last administered on 07/15/17 06 :02; Admin Dose 40 MG; Start 07/14/17 at 06:00 Mirtazapine (Remeron) 60 mg HS PO Last administered on 07/14/17 21:24; Admin Dose 60 MG; Start 07/13/17 at 21:00 Potassium Chloride (Klor-Con 10) 10 meq BID PO Last administered on 07/15/17 07:54; Admin Dose 10 MEQ; Start 07/13/17 at 21:00 Tamsulosin HCl (Flomax) 0.4 mg HS PO Last administered on 07/14/17 21:36; Admin Dose 0.4 MG; Start 07/13/17 at 21:00 Miscellaneous Information 1 ea NOTE XX ; Start 07/13/17 at 14:30 Glucose (Glutose) 15 gm Q15M PRN PO DECREASED GLUCOSE; Start 07/13/17 at 14:30 Glucose (Glutose) 22.5 gm Q15M PRN PO DECREASED GLUCOSE; Start 07/13/17 at 14: 30 Dextrose (D50w Syringe) 25 ml Q15M PRN IV DECREASED GLUCOSE; Start 07/13/17 at 14:30 Dextrose (D50w Syringe) 50 ml Q15M PRN IV DECREASED GLUCOSE; Start 07/13/17 at 14:30 Glucagon (Glucagen) 1 mg Q15M PRN IM DECREASED GLUCOSE; Start 07/13/17 at 14:30 Glucose (Glutose) 15 gm Q15M PRN BUCCAL DECREASED GLUCOSE; Start 07/13/17 at 14 :30 Diagnostic Test (Pha) 1 ea 1 ea 02 XX ; Start 07/14/17 at 02:00 Ceftriaxone Sodium (Rocephin) 50 ml @ 100 mls/hr Q24H IVPB Last administered on 07/14/17t 17:06; Admin Dose 100 MLS/HR; Start 07/14/17 at 18:00 Diagnostic Test (Pha) (Accu-Chek) 1 ea 02 XX ; Start 07/16/17 at 02:00 Diagnostic Test (Pha) (Accu-Chek) 1 XX ; Start 07/16/17 at 02:00 NOEL MELLO MD Jul 15, 2017 11:10
--- NOTE | 2017-07-15 12:47 | RADRPT ---
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 Physician: ROOPA WYATT Quality: Good Procedures: Transthoracic echocardiogram with complete 2D, M-Mode, and doppler examination. Indications: Shortness of breath. 2D/M Mode Doppler Measurement Value Normal Ranges Measurement Value Normal Ranges LVIDd 2D 4.2 3.5 - 5.6 cm AV Peak Manuel 1.2 m/sec LVIDs 2D 2.5 2.1 - 4.1 cm AV Peak PG 6.0 mmHg FS 2D 41.2 % LVOT Peak Manuel 0.7 m/sec LVPWd 2D 1.8 0.6 - 1.1 cm LVOT Peak PG 2.0 mmHg IVSd 2D 1.9 0.6 - 1.1 cm MV E Peak Manuel 1.1 m/sec IVS/LVPW 2D 1.1 MV A Peak Manuel 1.2 m/sec AoR Diam 2D 3.2 2.0 - 3.7 cm MV E/A 0.9 LA/Ao 2D 1 0 - 1 MV Decel Time 218 msec EDV 2D 72.5 cm3 MV E/A 0.9 ESV 2D 14.7 cm3 TR Peak Manuel 2.6 m/sec LA Dimen 2D 4.5 2.3 - 4.0 cm TR Peak PG 26.0 mmHg RVSP 29.0 mmHg Findings Left Ventricle: Normal left ventricular systolic function. Normal left ventricular cavity size. Severe concentric left ventricular hypertrophy. Ejection fraction is visually estimated at 6065 %. Tissue Doppler/Mitral Doppler indices are consistent with impaired relaxation (Stage I diastolic dysfunction). Right Ventricle: Normal right ventricular size. Normal right ventricular systolic function. Left Atrium: There is mild enlargement of left atrium. Right Atrium: There is mild enlargement of right atrium. Mitral Valve: Mitral valve leaflets appear mildly thickened. Mild mitral annular calcification. Trace mitral regurgitation. Aortic Valve: No hemodynamically significant aortic stenosis by doppler. Aortic cusps appear moderately calcified. Trace aortic valve regurgitation. Tricuspid Valve: Normal appearance of the tricuspid valve. Estimated peak PA systolic pressure 29 mmHg. There is mild tricuspid regurgitation. Pulmonic Valve: There is mild pulmonic regurgitation. Pericardium: Normal pericardium with no significant pericardial effusion. Aorta: Normal aortic root. IVC: Normal size and normal respiratory collapse consistent with normal right atrial pressure. Conclusions 1.The left ventricle is normal in size and systolic function. 2.Estimated left ventricular ejection fraction of 60-65%. 3.Severe concentric left ventricular hypertrophy. Grade 1 diastolic dysfunction. 4.Mild bi-atrial enlargement. Electronically Signed By: Demetris Peña 15-Jul-2017 12:46:49 -0700 Patient Name: KWESI CLARK Study Date: 14-Jul-2017 [id number]
[2017-07-15 13:16] VITALS: BP 153/70; RESP 20
[2017-07-15] MEDS: CEFTRIAXONE 1 GM/NS 50 ML IVPB SCH (17:14)
[2017-07-15 19:40] VITALS: BP 151/70; RESP 20
[2017-07-15] MEDS: TAMSULOSIN (SR) 0.4 MG CAP PO SCH (20:52)
[2017-07-15] MEDS: MIRTAZAPINE 15 MG TAB PO SCH (20:53)
[2017-07-15] MEDS: ATORVASTATIN 10 MG TAB PO SCH (20:53)
[2017-07-15] MEDS: INSULIN GLARGINE [LANtus] 3 ML PEN SC SCH (21:02)
[2017-07-16] VITALS (8 sets, daily range): BP systolic 148–184; BP diastolic 62–82; PULSE 72–75; RESP 18–20
[2017-07-16] MEDS: ACCU-CHEK XX SCH ×3 (02:00)
[2017-07-16] MEDS ORDERED: ACCU-CHEK XX SCH (02:00)
[2017-07-16] MEDS: hydrALAzine 20 MG INJ IV PRN (02:14)
[2017-07-16] MEDS ORDERED: INSULIN ASPART [NOVOLOG] 3 ML PEN SC ONE (03:00)
[2017-07-16] MEDS: PANTOPRAZOLE (EC) 40 MG TAB PO SCH (05:45)
[2017-07-16] MEDS: HYDROCODONE/APAP (5/325) TAB PO PRN ×2 (05:45→16:37)
[2017-07-16 06:25] LABS: BASOPHILS % 0.4 % (0.0-2.0); EOSINOPHILS # 0.3 10^3/ul (0.0-0.5); EOSINOPHILS % 4.2 % (0.0-7.0); HEMATOCRIT 34.3 % (42.0-52.0); HEMOGLOBIN 11.1 g/dl (14.0-18.0); LYMPHOCYTES # 0.9 10^3/ul (0.8-2.9); LYMPHOCYTES % 12.9 % (15.0-51.0); MEAN CORPUSCULAR HEMOGLOBIN 26.9 pg (29.0-33.0); MEAN CORPUSCULAR HGB CONC 32.4 g/dl (32.0-37.0); MEAN CORPUSCULAR VOLUME 83.1 fl (82.0-101.0); MONOCYTE # 0.6 10^3/ul (0.3-0.9); MONOCYTES % 8.2 % (0.0-11.0); NEUTROPHIL # 5.1 10^3/ul (1.6-7.5); PLATELET COUNT 247 10^3/UL (140-415); RED BLOOD COUNT 4.13 10^6/ul (4.70-6.10); RED CELL DISTRIBUTION WIDTH 14.4 % (11.5-14.5); WHITE BLOOD COUNT 6.9 10^3/ul (4.8-10.8)
[2017-07-16 06:41] LABS: CALCIUM 8.5 mg/dl (8.4-10.2); CREATININE 0.97 mg/dl (0.61-1.24); INR 1.02; PROTIME 13.4 Sec (12.2-14.2)
[2017-07-16] MEDS: AMLODIPINE 10 MG TAB PO SCH (08:00)
[2017-07-16] MEDS: MAGNESIUM HYDROXIDE 30ML CUP PO PRN (08:00)
[2017-07-16] MEDS: GABAPENTIN 300 MG CAP PO SCH ×3 (08:00→20:30)
[2017-07-16] MEDS: POTASSIUM CHLORIDE (SR) 10 MEQ TAB PO SCH ×2 (08:00→20:29)
[2017-07-16] MEDS: INSULIN ASPART [NOVOLOG] 3 ML PEN SC SCH ×4 (08:08→20:34)
--- NOTE | 2017-07-16 09:55 | PDOCDIS ---
Discharge Instructions CONDITION Patient Condition: Good HOME CARE INSTRUCTIONS: Special Diet: Carb Controlled ACTIVITY: Activity Restrictions: Special Exercises FOLLOW UP/APPOINTMENTS Follow-up Plan Transfer to intermediate facility NOEL MELLO MD Jul 16, 2017 09:55
[2017-07-16] MEDS ORDERED: IPRA3AMP HHN (09:57)
[2017-07-16] MEDS: BENAZEPRIL 10 MG TAB PO SCH (10:45)
--- NOTE | 2017-07-16 11:28 | DS ---
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 PROCEDURE: 2D echocardiogram, which demonstrated normal ejection fraction of 60 percent 65 percent with stage 1 diastolic dysfunction, severe concentric left ventricular hypertrophy, grade 1 diastolic dysfunction, mild right atrial enlargement. FINAL DIAGNOSES: 1. Stage 1 diastolic dysfunction. 2. Sepsis secondary to urinary tract infection, on Rocephin. Urine culture and sensitivity was negative. Leukocytosis has resolved. 3. History of diabetes mellitus, type 2. Continue Lantus and insulin sliding scale. Low carb diet. 4. Essential hypertension, well controlled on medical management. 5. Supratherapeutic INR, resolved. No indication for vitamin K. There was no evidence of bleeding. 6. History of coronary artery disease with a history of coronary artery bypass with pacemaker placement. Continue statins, Xarelto, aspirin. 7. Dyslipidemia. Continue statin. 8. Benign prostatic hypertrophy. Continue Flomax. 9. Diabetic neuropathy. Continue gabapentin. MEDICATION: 1. Tylenol. 2. Duoneb. 3. Norvasc. 4. Lipitor. 5. Rocephin x7 days. 6. Colace p.r.n. 7. Lasix 40 mg. 8. Gabapentin 300 mg. 9. Insulin sliding scale. 10. [place]pex. 11. Lantus 27 units. 12. Mirtazapine 60 mg. 13. Nitroglycerin p.r.n. 14. Prevacid. 15. Potassium chloride 10 mEq. 16. Flomax 0.4 mg. 17. Aspirin 81 mg. 18. Ramipril 10 mg. 19. Xarelto 20 mg. ALLERGIES: NO KNOWN DRUG ALLERGY. DISPOSITION: To fdc facility. Lab, CBC, BMP, mag in the morning. Diet, low carb and cardiac. PT, OT eval and treat. SCDs and the patient is on Xarelto. HOSPITAL COURSE: This is a pleasant 76-year-old gentleman with past medical history of diabetes mellitus, diabetic neuropathy, essential hypertension, history of pacemaker, coronary artery disease, status post CABG; frequent urinary tract infections, dyslipidemia, who was recently seen and evaluated at [facility] secondary to having generalized weakness and was diagnosed with a urinary tract infection. Apparently, he was treated with 1 dose of IV antibiotics and was discharged home. The patient presented to [facility] on 07/13/2017, continued having generalized weakness and dysuria. His urinalysis was found to be negative, although he was found to be febrile with temperature of 100.2. Chest x-ray did not show any acute cardiopulmonary disease, showed mild atelectasis of the left lung base, atherosclerosis, previous mediastinum sternotomy, permanent pacemaker. Patient was placed on broad-spectrum IV antibiotics. His blood culture and urine culture were found to be negative. His leukocytosis resolved. The patient was seen and evaluated by Physical Therapy, and they have recommended the patient to be transferred to a fdc facility secondary to his risk of fall at this time. Regarding his diabetes mellitus, the patient was continued on Lantus. Regarding his essential hypertension, blood pressure well controlled on medical management during this course of hospitalization. He has been afebrile at this time. The patient is medically stable to be discharged to a fdc facility, to closely follow up with primary care physician as outpatient. LABS: WBC 6.9, hemoglobin 11.1, hematocrit 34.3, platelets 247. Sodium 136, potassium 4.3, chloride 103, bicarb 26, BUN 11, creatinine 0.97, glucose 175, calcium 7.5. Hemoglobin A1c 7.4. Lactic acid was normal during that admission. Lipid panel: Triglyceride 46, total cholesterol 62, LDL 22, HDL 31. Dictated By: Vicente Arroyo MD /jermaine/william /Document#: [id number]
[2017-07-16] MEDS: CEFTRIAXONE 1 GM/NS 50 ML IVPB SCH (17:37)
[2017-07-16] MEDS: TAMSULOSIN (SR) 0.4 MG CAP PO SCH (20:29)
[2017-07-16] MEDS: MIRTAZAPINE 15 MG TAB PO SCH (20:30)
[2017-07-16] MEDS: ATORVASTATIN 10 MG TAB PO SCH (20:30)
[2017-07-16] MEDS: INSULIN GLARGINE [LANtus] 3 ML PEN SC SCH (20:33)
[2017-07-16] MEDS ORDERED: INSULIN ASPART [NOVOLOG] 3 ML PEN SC STA (20:39)
[2017-07-17 02:00] VITALS: BP 170/55; RESP 18
[2017-07-17] MEDS ORDERED: INSULIN ASPART [NOVOLOG] 3 ML PEN SC ONE (02:00)
[2017-07-17] MEDS: ACCU-CHEK XX SCH (02:01)
[2017-07-17] MEDS: morphine 2 MG INJ IV PRN (02:05)
[2017-07-17] MEDS: hydrALAzine 20 MG INJ IV PRN (02:41)
[2017-07-17 02:43] VITALS: BP 185/80; PULSE 69
[2017-07-17 03:34] VITALS: BP 152/72; PULSE 72
[2017-07-17] MEDS: PANTOPRAZOLE (EC) 40 MG TAB PO SCH (05:11)
[2017-07-17 07:32] VITALS: BP_SYST 141; BP_SYST 155; BP_DIAS 68; BP_DIAS 88; RESP 18
[2017-07-17] MEDS: INSULIN ASPART [NOVOLOG] 3 ML PEN SC SCH ×4 (07:55→20:33)
[2017-07-17] MEDS: POTASSIUM CHLORIDE (SR) 10 MEQ TAB PO SCH ×2 (08:26→21:03)
[2017-07-17] MEDS: AMLODIPINE 10 MG TAB PO SCH (08:26)
[2017-07-17] MEDS: BENAZEPRIL 10 MG TAB PO SCH (08:26)
[2017-07-17] MEDS: GABAPENTIN 300 MG CAP PO SCH ×3 (08:26→21:02)
[2017-07-17 11:58] LABS: CALCIUM 8.4 mg/dl (8.4-10.2); CREATININE 0.79 mg/dl (0.61-1.24); POTASSIUM 4.8 mmol/L (3.5-5.1)
--- NOTE | 2017-07-17 11:59 | PN ---
Date/Time of Note Date/Time of Note DATE: 07/17/17 TIME: 11:53 Assessment/Plan VTE Prophylaxis VTE Prophylaxis Intervention: other (xarelto) Lines/Catheters IV [facility] ([facility] Saline Lock Urinary Cath still in place: No (Condom) Assessment/Plan Assessment/Plan 1. Stage 1 diastolic dysfunction, stable 2. Coronary artery disease with a history of coronary artery bypass, stable, no chest pain 3. s/p pacemaker placement, stable 4. 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 Diabetes mellitus, type 2. Continue Lantus and insulin sliding scale. Low carb diet. 6. Essential hypertension, well controlled on medical management. 7. Dyslipidemia. Continue statin. 8. Benign prostatic hypertrophy. Continue Flomax. 9. Diabetic neuropathy. Continue gabapentin. Subjective 24 Hr Interval Summary Free Text/Dictation stronger. No chest pain, no fever or chills. Exam/Review of Systems Vital Signs Vitals Vital Signs Date Time Temp Pulse Resp B/P Pulse Ox O2 Delivery O2 Flow Rate FiO2 07/17/17 07:32 98.4 72 18 155/68 94 07/14/17 20:00 Room Air 07/13/17 15:38 2.0 Intake and Output 07/16/17 07/16/17 07/17/17 15:00 23:00 07:00 Intake Total 1670 ml 800 ml Output Total 900 ml 1350 ml Balance 770 ml -550 ml Exam Constitutional: alert, oriented, well developed Psych: nl mood/affect, no complaints Head: atraumatic, normocephalic Eyes: EOMI, PERRL, nl conjunctiva, nl lids ENMT: mucosa pink and moist, nl external ears & nose, nl lips & teeth, nl nasal mucosa & septum Neck: supple Respiratory: clear to auscultation, normal air movement, No congested cough, No crackles/rales, No diminished breath sounds, No intercostal retraction, No labored breathing, No other, No respirations, No tactile fremitus, No wheezing Cardiovascular: nl pulses, regular rate and rhythm, No S3, No S4, No bruits, No diastolic murmur, No edema, No gallop, No irregular rhythm, No jugular venous distention (JVD), No murmurs/extra sounds, No other, No rub, No systolic murmur Gastrointestinal: nl liver, spleen, non-tender, soft, No ascites, No bowel sounds, No distended, No firm, No hepatomegaly, No mass , No other, No rebound or guarding, No splenomegaly, No surgical scars, No tender Musculoskeletal: nl extremities to inspection Extremities: normal pulses, No calf tenderness, No clubbing, No cyanosis, No edema, No other, No palpable cord, No pitting pedal edema, No tenderness Neurological: CLINICAL PSYCHIATRIST II-XII intact, nl mental status, nl speech, nl strength Skin: nl turgor Lymph: nl lymph nodes Results Result Diagram: 07/16/1729 07/16/17528 Results 24 hrs Laboratory Tests Test 07/16/17 12:01 07/16/17 17:28 07/16/17 20:27 07/17/17 01:56 Bedside Glucose 248 H 186 395 H 324 H Test 07/17/17 05:10 07/17/17 07:53 07/17/17 11:00 Bedside Glucose 158 189 White Blood Count Pending Red Blood Count Pending Hemoglobin Pending Hematocrit Pending Mean Corpuscular Volume Pending Mean Corpuscular Hemoglobin Pending Mean Corpuscular Hemoglobin Concent Pending Red Cell Distribution Width Pending Platelet Count Pending Mean Platelet Volume Pending Medications Medications Current Medications Ondansetron HCl (Zofran Inj) 4 mg Q6H PRN IV NAUSEA AND/OR VOMITING; Start at 14:30 Acetaminophen (Tylenol Tab) 650 mg Q6H PRN PO PAIN LEVEL 1-3 OR FEVER; Start at 14:30 Acetaminophen/ Hydrocodone Bitart ([place] (5/325)) 1 tab Q6H PRN PO MODERATE PAIN LEVEL 4-6 Last administered on 07/16/17 16:37; Admin Dose 1 TAB; Start at 14:30 Morphine Sulfate (morphine) 2 mg Q4H PRN IV SEVERE PAIN LEVEL 7-10 Last administered on 07/17/17 02:05; Admin Dose 2 MG; Start 07/13/17 at 14:30 Docusate Sodium (Colace) 100 mg Q12H PRN PO CONSTIPATION; Start 07/13/17 at 14: 30 Magnesium Hydroxide (Milk Of Mag) 30 ml DAILY PRN PO CONSTIPATION Last administered on 07/16/17 08:00; Admin Dose 30 ML; Start 07/13/17 at 14:30 Sodium Biphosphate/ Sodium Phosphate (Fleet Enema) 133 ml DAILY PRN [place] CONSTIPATION; Start 07/13/17 at 14:30 Lorazepam (Ativan) 0.5 mg Q6H PRN IV ANXIETY; Start 07/13/17 at 14:30 Hydralazine HCl (Apresoline) 10 mg Q6H PRN IV ELEVATED BLOOD PRESSURE Last administered on 07/17/17 02:41; Admin Dose 10 MG; Start 07/13/17 at 14:30 Nitroglycerin (Nitroglycerin (Sl Tab) 0.4 Mg) 1 tab Q5M PRN SL ANGINA; Start at 14:30 Amlodipine Besylate (Norvasc) 10 mg DAILY PO Last administered on 07/17/17 08: 26; Admin Dose 10 MG; Start 07/14/17 at 09:00 Atorvastatin Calcium (Lipitor) 10 mg QHS PO Last administered on 07/16/17 20: 30; Admin Dose 10 MG; Start 07/13/17 at 21:00 Furosemide (Lasix) 80 mg DAILY PO Last administered on 07/14/17 08:06; Admin Dose 80 MG; Start 07/14/17 at 09:00; Status Future Hold Gabapentin (Neurontin) 300 mg TID PO Last administered on 07/17/17 08:26; Admin Dose 300 MG; Start 07/13/17 at 21:00 Insulin Glargine (Lantus) 27 unit QHS SC Last administered on 07/16/17 20:33; Admin Dose 27 UNIT; Start 07/13/17 at 21:00 Pantoprazole (Protonix Tab) 40 mg DAILY@06 PO Last administered on 07/17/17 05 :11; Admin Dose 40 MG; Start 07/14/17 at 06:00 Mirtazapine (Remeron) 60 mg HS PO Last administered on 07/16/17 20:30; Admin Dose 60 MG; Start 07/13/17 at 21:00 Potassium Chloride (Klor-Con 10) 10 meq BID PO Last administered on 07/17/17 08:26; Admin Dose 10 MEQ; Start 07/13/17 at 21:00 Tamsulosin HCl (Flomax) 0.4 mg HS PO Last administered on 07/16/17 20:29; Admin Dose 0.4 MG; Start 07/13/17 at 21:00 Miscellaneous Information 1 ea NOTE XX ; Start 07/13/17 at 14:30 Glucose (Glutose) 15 gm Q15M PRN PO DECREASED GLUCOSE; Start 07/13/17 at 14:30 Glucose (Glutose) 22.5 gm Q15M PRN PO DECREASED GLUCOSE; Start 07/13/17 at 14: 30 Dextrose (D50w Syringe) 25 ml Q15M PRN IV DECREASED GLUCOSE; Start 07/13/17 at 14:30 Dextrose (D50w Syringe) 50 ml Q15M PRN IV DECREASED GLUCOSE; Start 07/13/17 at 14:30 Glucagon (Glucagen) 1 mg Q15M PRN IM DECREASED GLUCOSE; Start 07/13/17 at 14:30 Glucose 15 gm 15 gm Q15M PRN BUCCAL DECREASED GLUCOSE; Start 07/13/17 at 14:30 Ceftriaxone Sodium (Rocephin) 50 ml @ 100 mls/hr Q24H IVPB Last administered on 07/16/17 17:37; Admin Dose 100 MLS/HR; Start 07/14/17 at 18:00 Diagnostic Test (Pha) (Accu-Chek) 1 ea 02 XX Last administered on 07/17/17 02: 01; Admin Dose 1 EA; Start 07/16/17 at 02:00 Benazepril HCl (Lotensin) 10 mg DAILY PO Last administered on 07/17/17 08:26; Admin Dose 10 MG; Start 07/16/17 at 10:30 YOAN DE DIOS MD Jul 17, 2017 11:59
[2017-07-17 12:35] LABS: BASOPHIL # 0.1 10^3/ul (0.0-0.1); BASOPHILS % 0.6 % (0.0-2.0); EOSINOPHILS # 0.2 10^3/ul (0.0-0.5); EOSINOPHILS % 3.1 % (0.0-7.0); HEMATOCRIT 35.1 % (42.0-52.0); HEMOGLOBIN 11.3 g/dl (14.0-18.0); LYMPHOCYTES # 0.8 10^3/ul (0.8-2.9); LYMPHOCYTES % 10.6 % (15.0-51.0); MEAN CORPUSCULAR HEMOGLOBIN 26.3 pg (29.0-33.0); MEAN CORPUSCULAR HGB CONC 32.2 g/dl (32.0-37.0); MEAN CORPUSCULAR VOLUME 81.8 fl (82.0-101.0); MEAN PLATELET VOLUME 10.3 fl (7.4-10.4); MONOCYTE # 0.6 10^3/ul (0.3-0.9); MONOCYTES % 7.4 % (0.0-11.0); NEUTROPHILS % 77.7 % (39.0-77.0); PLATELET COUNT 252 10^3/UL (140-415); RED BLOOD COUNT 4.29 10^6/ul (4.70-6.10); RED CELL DISTRIBUTION WIDTH 14.7 % (11.5-14.5); WHITE BLOOD COUNT 7.7 10^3/ul (4.8-10.8)
[2017-07-17 14:15] VITALS: BP 158/68; RESP 18
[2017-07-17 19:52] VITALS: BP 143/67; RESP 18
[2017-07-17] MEDS: INSULIN GLARGINE [LANtus] 3 ML PEN SC SCH (20:38)
[2017-07-17] MEDS: ATORVASTATIN 10 MG TAB PO SCH (21:02)
[2017-07-17] MEDS: MIRTAZAPINE 15 MG TAB PO SCH (21:03)
[2017-07-17] MEDS: TAMSULOSIN (SR) 0.4 MG CAP PO SCH (21:03)
[2017-07-18 02:00] VITALS: BP 180/84; RESP 20
[2017-07-18] MEDS: ACCU-CHEK XX SCH (02:04)
[2017-07-18] MEDS: PANTOPRAZOLE (EC) 40 MG TAB PO SCH (06:03)
[2017-07-18 07:37] VITALS: BP 122/72; RESP 16
[2017-07-18] MEDS: INSULIN ASPART [NOVOLOG] 3 ML PEN SC SCH ×2 (08:13→12:07)
[2017-07-18] MEDS: POTASSIUM CHLORIDE (SR) 10 MEQ TAB PO SCH (09:08)
[2017-07-18] MEDS: GABAPENTIN 300 MG CAP PO SCH ×2 (09:08→13:22)
[2017-07-18] MEDS: AMLODIPINE 10 MG TAB PO SCH (09:09)
[2017-07-18] MEDS: BENAZEPRIL 10 MG TAB PO SCH (09:09)
[2017-07-18 10:58] LABS: BASOPHIL # 0.1 10^3/ul (0.0-0.1); BASOPHILS % 0.7 % (0.0-2.0); EOSINOPHILS # 0.2 10^3/ul (0.0-0.5); EOSINOPHILS % 2.3 % (0.0-7.0); HEMATOCRIT 38.8 % (42.0-52.0); HEMOGLOBIN 12.4 g/dl (14.0-18.0); LYMPHOCYTES # 1.2 10^3/ul (0.8-2.9); LYMPHOCYTES % 10.9 % (15.0-51.0); MEAN CORPUSCULAR HEMOGLOBIN 26.8 pg (29.0-33.0); MEAN CORPUSCULAR VOLUME 83.8 fl (82.0-101.0); MEAN PLATELET VOLUME 9.7 fl (7.4-10.4); MONOCYTE # 0.6 10^3/ul (0.3-0.9); MONOCYTES % 5.8 % (0.0-11.0); NEUTROPHIL # 8.5 10^3/ul (1.6-7.5); NEUTROPHILS % 79.8 % (39.0-77.0); PLATELET COUNT 291 10^3/UL (140-415); RED BLOOD COUNT 4.63 10^6/ul (4.70-6.10); RED CELL DISTRIBUTION WIDTH 14.6 % (11.5-14.5); WHITE BLOOD COUNT 10.6 10^3/ul (4.8-10.8)
[2017-07-18 11:20] LABS: CALCIUM 8.6 mg/dl (8.4-10.2); CREATININE 0.89 mg/dl (0.61-1.24); POTASSIUM 4.3 mmol/L (3.5-5.1)
--- NOTE | 2017-07-18 13:22 | DS ---
Date/Time of Note Date/Time of Note DATE: 07/18/17 TIME: 13:20 Discharge Summary Admission/Discharge Info Admit Date/Time Jul 15, 2017 at 11:04 Discharge Date/Time Discharge Diagnosis 1. Stage 1 diastolic dysfunction, stable 2. Coronary artery disease with a history of coronary artery bypass, stable, no chest pain 3. s/p pacemaker placement, stable 4. 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 Diabetes mellitus, type 2. Continue Lantus and insulin sliding scale. Low carb diet, add premeal insulin 6. Essential hypertension, well controlled on medical management. 7. Dyslipidemia. Continue statin. 8. Benign prostatic hypertrophy. Continue Flomax. 9. Diabetic neuropathy. Continue gabapentin. Patient Condition: Stable Hospital Course This is a pleasant 76-year-old gentleman with past medical history of diabetes mellitus, diabetic neuropathy, essential hypertension, history of pacemaker, coronary artery disease, status post CABG; frequent urinary tract infections, dyslipidemia, who was recently seen and evaluated at [facility] secondary to having generalized weakness and was diagnosed with a urinary tract infection. Apparently, he was treated with 1 dose of IV antibiotics and was discharged home. The patient presented to [facility] on 07/13/2017, continued having generalized weakness and dysuria. His urinalysis was found to be negative, although he was found to be febrile with temperature of 100.2. Chest x-ray did not show any acute cardiopulmonary disease, showed mild atelectasis of the left lung base, atherosclerosis, previous mediastinum sternotomy, permanent pacemaker. Patient was placed on broad-spectrum IV antibiotics. His blood culture and urine culture were found to be negative. His leukocytosis resolved. The patient was seen and evaluated by Physical Therapy, and they have recommended the patient to be transferred to a assisted facility secondary to his risk of fall at this time. Regarding his diabetes mellitus, the patient was continued on Lantus. Regarding his essential hypertension, blood pressure well controlled on medical management during this course of hospitalization. He has been afebrile at this time. The patient is medically stable to be discharged to a assisted facility, to closely follow up with primary care physician as outpatient. Patient's blood glucose is still high that I add 6 units insulin premeal. Insulin dosage will be adjusted per physicians in SNF. Home Meds Active Scripts Ipratropium-Albuterol (Ipratropium-Albuterol) 0.5-3 Mg/3 Ml Ampul.neb, 3 ML HHN Q4H RESP THERAPY Y for SHORTNESS OF BREATH for 14 Days Prov:NOEL MELLO MD 07/16/17 Reported Medications Acetaminophen with Codeine (Acetaminophen-Cod #4 Tablet) 1 Each Tablet, 1 EACH PO Q12 Y for PAIN, TAB 07/13/17 Aspirin* (Ecotrin*) 325 Mg Tablet., 325 MG PO DAILY, TAB 07/13/17 Lansoprazole* (Prevacid*) 30 Mg Capsule.dr, 30 MG PO DAILY, CAP 07/13/17 Insulin Glargine* (Lantus*) 100 Unit/Ml Soln, 27 UNIT SC QHS, #1 VIAL 07/13/17 Insulin Lispro (Humalog Kwikpen) 200 Unit/1 Ml Insuln.pen, 0 SQ AC MEALS, EA SLIDING SCALE NO SCALE GIVEN 07/13/17 Tamsulosin Hcl* (Tamsulosin Hcl*) 0.4 Mg Cap.er.24h, 0.4 MG PO HS, CAP 07/13/17 Rivaroxaban* (Xarelto*) 20 Mg Tablet, 20 MG PO WITH DINNER, TAB 07/13/17 Ramipril (Ramipril) 10 Mg Capsule, 10 MG PO DAILY, CAP 07/13/17 Potassium Chloride* (K-Dur*) 10 Meq Tab.prt.sr, 10 MEQ PO BID, TAB 07/13/17 Amlodipine Besylate* (Amlodipine Besylate*) 10 Mg Tablet, 10 MG PO DAILY, #30 TAB 07/13/17 Atorvastatin Calcium (Atorvastatin Calcium) 10 Mg Tablet, 10 MG PO QHS, #30 TAB 07/13/17 Mirtazapine* (Mirtazapine*) 30 Mg Tablet, 60 MG PO HS, TAB 07/13/17 Gabapentin* (Gabapentin*) 300 Mg Capsule, 300 MG PO TID, #90 CAP 07/13/17 Discontinued Reported Medications Furosemide* (Furosemide*) 80 Mg Tablet, 80 MG PO DAILY, #30 TAB 07/13/17 Cefpodoxime Proxetil* (Cefpodoxime Proxetil*) 100 Mg Tablet, 100 MG PO Q12, #20 TAB 07/13/17 Follow-up Plan Transfer to assisted facility Primary Care Provider Not On Staff Doctor Pending Labs Laboratory Tests Test 07/17/17 17:12 07/17/17 20:25 07/18/17 02:01 07/18/17 08:07 Bedside Glucose 228mg/dL (70-220) 348mg/dL (70-220) 175mg/dL (70-220) 253mg/dL (70-220) Test 07/18/17 10:35 07/18/17 12:01 White Blood Count 10.610^3/ul (4.8-10.8) Red Blood Count 4.6310^6/ul (4.70-6.10) Hemoglobin 12.4g/dl (14.0-18.0) Hematocrit 38.8% (42.0-52.0) Mean Corpuscular Volume 83.8fl (82.0-101.0) Mean Corpuscular Hemoglobin 26.8pg (29.0-33.0) Mean Corpuscular Hemoglobin Concent 32.0g/dl (32.0-37.0) Red Cell Distribution Width 14.6% (11.5-14.5) Platelet Count 23068^3/UL (140-415) Mean Platelet Volume 9.7fl (7.4-10.4) Neutrophils % 79.8% (39.0-77.0) Lymphocytes % 10.9% (15.0-51.0) Monocytes % 5.8% (0.0-11.0) Eosinophils % 2.3% (0.0-7.0) Basophils % 0.7% (0.0-2.0) Nucleated Red Blood Cells % 0.0/100WBC (0.0-0.0) Neutrophils # 8.510^3/ul (1.6-7.5) Lymphocytes # 1.210^3/ul (0.8-2.9) Monocytes # 0.610^3/ul (0.3-0.9) Eosinophils # 0.210^3/ul (0.0-0.5) Basophils # 0.110^3/ul (0.0-0.1) Nucleated Red Blood Cells # 0.010^3/ul (0.0-0.0) Sodium Level 130mmol/L (135-144) Potassium Level 4.3mmol/L (3.5-5.1) Chloride Level 99mmol/L (97-110) Carbon Dioxide Level 24mmol/L (21-31) Anion Gap 11 (8-16) Blood Urea Nitrogen 9mg/dl (7-20) Creatinine 0.89mg/dl (0.61-1.24) Glucose Level 317mg/dl (70-220) Calcium Level 8.6mg/dl (8.4-10.2) Bedside Glucose 309mg/dL (70-220) YOAN DE DIOS MD Jul 18, 2017 13:22
[2017-07-18] MEDS ORDERED: INSULIN ASPART [NOVOLOG] 3 ML PEN SC SCH ×2 (18:00)
[2017-07-19] MEDS ORDERED: ACCU-CHEK XX SCH (02:00)
== END 2017-07-18 14:20 | DRG 872 ==
LOC: E/R 09:32 → MS2 13:14 → OBSVTOIN 07-15 11:04
PROVIDERS: ADMIT Internal Medicine; ATTEND Internal Medicine
DX: A41.9 Sepsis, unspecified organism (principal); E11.40 Type 2 diabetes mellitus with diabetic neuropathy, unspecified; N39.0 Urinary tract infection, site not specified; E87.1 Hypo-osmolality and hyponatremia; Z79.82 Long term (current) use of aspirin; Z79.4 Long term (current) use of insulin; I10 Essential (primary) hypertension; Z79.02 Long term (current) use of antithrombotics/antiplatelets; Z87.891 Personal history of nicotine dependence; Z95.0 Presence of cardiac pacemaker; Z95.1 Presence of aortocoronary bypass graft; N40.0 Benign prostatic hyperplasia without lower urinary tract symptoms
CPT/HCPCS: 36415; 71010; 80048; 80053; 80061; 81003; 82962; 83036; 83605; 83735; 84100; 84439; 84443; 84484; 85025; 85610; 85730; 87040; 87086; 93005; 93306; 96374; 97110; 97116; 97167; 97530; A4310; G0378; J0360; J0696; J1815; J2270; J2543; J7030

== ENCOUNTER 2018-05-24 16:13 | Emergency (ER) | END 2018-05-25 00:16 | disposition home or self-care (01) ==